=== PATIENT | female | born 2000 | race African-American/Black ===

== ENCOUNTER 2022-07-08 21:59 | Emergency (ER) | payer OTHER, SELFPAY ==
--- OUTSIDE RECORDS SUMMARY | 2022-07-08 22:02 | XMS REPORT | Continuity of Care Document ---
:2000 Author Organization [facility] t Address [facility] [place] [address] Care Team Providers Name Role Phone Pcp, Patient Does Not Have A Primary Care Physician [phone] Roby NATHAN Attending Clinician Unavailable Roby Matos Attending Clinician Doctor Unassigned, [place] Attending Clinician Unavailable JORGE HARMON Attending Clinician Unavailable Jorge Hayden Attending Clinician BARB MARIN Attending Clinician Unavailable KHAI COLE Attending Clinician Unavailable JORGE HARMON Admitting Clinician Unavailable Payers Payer Name Policy Type Policy Number Effective Date Expiration Date S natalee SUÁREZR FROM [id number] 2021 [facility] 00:00:00 HIM BCBS BLUE [id number] 2019 ADVANTAGE O 00:00:00 Problems Condition Condition Condition Status Onset Resolution Last Treating Co mments Source Name Details Category Date Date Treatment Clinician Date No known No known Disease Unive rs active active ity of problems problems [facility] Allergies, Adverse Reactions, Alerts Allergy Allergy Status Severity Reaction(s) Onset Inactive Treating Comm ents Source Name Type Date Date Clinician NO KNOWN Drug Active Univers ALLERGIE Class ity of S [facility] Social History Social Habit Start Date Stop Date Quantity Comments Source Exposure to 2022-06-27 2022-07-07 Not sure [facility] SARS-CoV-2 00:00:00 21:52:00 [facility] (event) [place] Tobacco use and 2017-09-09 2017-09-09 Smokeless tobacco Un iversity of exposure 00:00:00 00:00:00 non-user [facility] Sex Assigned At 2000 2000 Universit y of 00:00:00 00:00:00 [facility] Smoking Status Start Date Stop Date Source Never smoked tobacco [facility] Medications Ordered Filled Start Stop Current Ordering Indication Dosage Frequency Signature Comments Components Source Medication Medication Date Date Medication? Clinician (SIG) Name Name cephALEXin No 500mg 500 mg, Un sherine (KEFLEX) 07-08 Oral, ity of capsule 500 05:00: 04:10 [place] 1 [place] :[place] dose, On [facility] 07/08/22 Branch at 0000, JEANIE
Re ason for Anti-Infec tive: Documented Infection< br>Documen gold Infection Site: Skin / Soft Tissue
Duration of Therapy: 10 days ibuprofen 2021- No 600mg 600 mg, Uni vers (IBU) 07-08 Oral, ity of tablet 600 05:00: 04:10 ONCE, 1 [place] mg 00 :00 dose, On [facility] 07/08/22 Branch at 0000, JEANIE mupirocin 2 Yes [id number] Apply to Univers % ointment 07-07 area(s) 3 ity of 00:00: (three) [place] 00 times Medical daily. Branch ibuprofen Yes [id number] 600mg Take 1 Univers 600 mg 07-07 tablet by ity of tablet 00:00: mouth [place] 00 every 6 Medical (six) Branch hours as needed for Pain (scale 4-6). cephALEXin 2021- Yes [id number] 500mg Take 1 Univers (KEFLEX) 07-07 capsule by ity of 500 mg 00:00: 04:59 mouth in [place] capsule 00 :00 the Medical morning Branch and 1 capsule at noon and 1 capsule in the evening. Do all this for 10 days. ketorolac 2021- No 30mg 30 mg, Unive rs (TORADOL) 3-25 03-26 Slow IV ity of injection 23:15: 00:19 Push, [place] 30 mg 00 :00 ONCE, 1 Medical dose, On Branch 02/21/22 at 1815, JEANIE ondansetron Yes [id number] 4mg Take 1 Univers 4 mg 3-25 tablet by ity of disintegrat 00:00: mouth [place] ing tablet 00 every 8 Medica l (eight) Branch hours as needed for Nausea and Vomiting (N/V). dicyclomine Yes [id number] 20mg Take 1 Univers 20 mg 3-25 tablet by ity of tablet 00:00: mouth 4 [place] 00 (four) Medical times Branch daily as needed for Abdominal pain. ondansetron Yes [id number] 4mg Take 1 Univers 4 mg 3-25 tablet by ity of disintegrat 00:00: mouth [place] ing tablet 00 every 8 Medica l (eight) Branch hours as needed for Nausea and Vomiting (N/V). dicyclomine Yes [id number] 20mg Take 1 Univers 20 mg 3-25 tablet by ity of tablet 00:00: mouth 4 [place] 00 (four) Medical times Branch daily as needed for Abdominal pain. ondansetron Yes [id number] 4mg Take 1 Univers 4 mg 3-25 tablet by ity of disintegrat 00:00: mouth [place] ing tablet 00 every 8 Medica l (eight) Branch hours as needed for Nausea and Vomiting (N/V). dicyclomine Yes [id number] 20mg Take 1 Univers 20 mg 3-25 tablet by ity of tablet 00:00: mouth 4 [place] 00 (four) Medical times Branch daily as needed for Abdominal pain. cephALEXin 2021-0 2021- No [id number] 500mg Take 1 Univers (KEFLEX) 3-25 04-02 capsule by ity of 500 mg 00:00: 04:59 mouth 2 [place] capsule 00 :00 (two) Medical times Branch daily for 7 days. phenazopyri 2019-11 Yes [id number] 200mg Take 1 Univers dine 200 mg 1-27 tablet by ity of tablet 00:00: mouth 3 [place] (three) Medical times Branch daily. phenazopyri 2019- Yes [id number] 200mg Take 1 Univers dine 200 mg 1-27 tablet by ity of tablet 00:00: mouth 3 [place] (three) Medical times Branch daily. phenazopyri 2019- Yes [id number] 200mg Take 1 Univers dine 200 mg 1-27 tablet by ity of tablet 00:00: mouth 3 [place] (three) Medical times Branch daily. azithromyci 2015-0 Yes 250mg Take 1 Tab Univers n 2-01 by mouth ity of (ZITHROMAX) 00:00[place]. [place] 250 mg 00 Medical tablet Branch azithromyci Yes 250mg Take 1 Tab Univers n 2-01 by mouth ity of (ZITHROMAX) 00:00[place]. [place] 250 mg 00 Medical tablet Branch azithromyci Yes 250mg Take 1 Tab Univers n 2-01 by mouth ity of (ZITHROMAX) 00:00: [place]. [place] 250 mg 00 Medical tablet Branch Vital Signs Vital Name Observation Time Observation Value Comments Source Systolic blood 2022-07-08 02:52:00 170 mm[Hg] Univer sity [facility] Diastolic blood 2022-07-08 02:52:00 95 [facility]Hg[facility] 2022-07-08 02:52:00 89 /min [facility] Body temperature 2022-07-08 02:52:00 36.28 Shira [facility] Respiratory rate 2022-07-08 02:52:00 20 /min [facility] Body weight 2022-07-08 02:52:00 122.471 kg [facility] Oxygen saturation in 2022-07-08 02:52:00 99 /min [facility] Arterial blood by [facility] Pulse oximetry Branch Systolic blood 2022-02-22 00:16:00 159 mm[Hg] Univer sity [facility] Diastolic blood 2022-02-22 00:16:00 82 mm[Hg] [facility] Heart rate 2022-02-22 00:16:00 102 /min [facility] Body temperature 2022-02-22 00:16:00 37.56 Shira [facility] Respiratory rate 2022-02-22 00:16:00 20 /min [facility] Oxygen saturation in 2022-02-22 00:16:00 99 /min [facility] blood by [facility] Pulse oximetry Branch Body weight 2022-02-21 21:43:00 130.364 kg [facility] Procedures Procedure Date / Time Performed Performing Clinician Sourc e CONSENT/REFUSAL FOR 2022-07-08 02:33:40 [facility] TREATMENT XR CHEST 1 VW 2022-02-21 22:50:00 Sidra [facility] POCT TEST 2022-02-21 22:38:00 Jorge Harmon [facility] COMP. METABOLIC PANEL 2022-02-21 22:36:[address] [facility] ([id number]) [facility] CBC WITH DIFF 2022-02-21 22:36:00 Sidra [facility] URINALYSIS 2022-02-21 22:36:00 Sidra [facility] RAPID STREP SCREEN FOR 2022-02-21 22:36:00 Sidra [facility] GROUP A [facility] RAPID INFLUENZA A/B 2022-02-21 22:36:00 Jorge Harmon [facility] COVID-19 (ID NOW RAPID 2022-02-21 22:36:00 Sidra [facility] TESTING) Medical Branch CONSENT/REFUSAL FOR 2022-02-21 21:01:28 Doctor Unassigned, No [facility] AND Name Medical [place] TREATMENT Encounters Start End Encounter Admission Attending Care Care Encounter Source Date/Time Date/Time Type Type Clinicians Facility Department ID 2021-09-[address] [facility] [id number] Univers [facility] 2021-09-[address] [facility] [id number] Univers 23:32:08 [facility] 2021-09-[address] [facility] [id number] Univers 07:56:00 ity of [facility] 2021-09-[address] [facility] [id number] Univers 04:41:20 ity of [facility] 2022-07-07 2022-07-07 Emergency X Roby NATHAN [facility] ERT [id number] Univers 22:13:00 23:26:00 ity of [facility] 2022-07-07 2022-07-07 Emergency Roby Nathan [facility] [id number] Univers 22:13:00 23:26:00 Ale HILL [id number] i ty of [facility] 4.2.7.2.686 [facility] [id number] [address] 2022-07-07 2022-07-07 Orders Doctor JASMINE [id number] Univers 00:00:00 00:00:00 Only Unassigned, KEAGAN [id number] ity of [facility] 4.2.7.2.686 Amor [id number] [address] 2022-02-21 2022-02-21 Emergency X SIDRA, [facility] ERT [id number] Univers 16:46:00 19:25:00 JORGE [facility] 2022-02-21 2022-02-21 Emergency HarmonRUST [id number] Univers 16:46:00 19:25:00 Jorge HILL 350.1.13.10 i ty of [facility] 4.2.7.2.686 [facility] [id number] [address] 2022-01-17 2022-01-17 Outpatient R TOMAS, [facility] [id number] Univers 15:30:00 15:30:00 BARB [id number] [facility] 2022-01-07 2022-01-07 Outpatient R TOMAS, [facility] [id number] Univers 09:00:00 09:00:00 BARB [id number] [facility] 2022-01-07 2022-01-07 Outpatient R TOMAS, [facility] [id number] Univers 09:00:00 09:00:00 [facility] 2020-09-07 2020-09-07 Outpatient R KELSEY [facility] [id number] Univers 15:45:00 15:45:00 WONDIFUL ity o f [facility] 2020-09-07 2020-09-07 Outpatient R KELSEY [facility] [id number] Univers 15:45:00 15:45:00 WONDIFUL ity o f [facility] 2020-06-15 2020-06-15 Outpatient R [facility] [id number] Univers 15:40:00 15:40:00 [id number] [facility] 2020-06-15 2020-06-15 Outpatient R [facility] [id number] Univers 15:40:00 15:40:00 [facility] Results Test Description Test Time Test Comments Results Result Comments Source COMP. METABOLIC PANEL ([id number]) 2022-02-21 23:01:18 Test Item Value Reference Range Interpretation Comme nts NA (test code = 5340440486) 140 mmol/L 135-145 K (test code = 9481662610) 4.2 mmol/L 3.5-5.0 CL (test code = 2511979519) 104 mmol/L 98-108 CO2 TOTAL (test code = 25 mmol/L 23-31 5598010946) AGAP (test code = 7200781277) 2-16 BUN (test code = 3788522579) 10 mg/dL 7-23 GLUCOSE (test code = 1457390428) 106 mg/dL 70-110 CREATININE (test code = 0.63 mg/dL 0.50-1.04 9448955321) TOTAL BILI (test code = 0.6 mg/dL 0.1-1.0 2300863266) CALCIUM (test code = 2047475307) 8.8 mg/dL 8.6-10.6 T PROTEIN (test code = 8.0 g/dL 6.3-8.2 5822293864) ALBUMIN (test code = 2877428034) 4.0 g/dL 3.5-5.0 ALK PHOS (test code = 8497611935) 85 U/L 34-122 ALTv (test code = 1742-6) 18 U/L 5-35 AST(SGOT) (test code = 21 U/L 13-40 7570312916) eGFR (test code = 2326861604) mL/min/1.73m2 ALEJANDRO (test code = ALEJANDRO) Association of Glomerular Filtration Rate (GFR) and Staging of Kidney Disease* + +--------- + ----+| GFR (mL/min/1.73 m2) ?| With Kidney Damage ?| ?Without Kidney Damage+ +--- + +| ?>90 ?| ?Stage one ?| ? Normal ?+ +-------- + -----+| ?60-89 ?| ?Stage two ?| ? Decreased GFR ? + +--------- + ----+| ?30-59 ?| ?Stage three ?| ? Stage three ? + +--------- + ----+| ?15-29 ?| ?Stage four ? | ? Stage four ?+ +-------- + -----+| ?<15 (or dialysis) ? ?| ?Stage five ? | ? Stage five ?+ +-------- + -----+ *Each stage assumes the associated GFR level has been in effect for at least three months. ?Stages 1 to 5, with or without kidney disease, indicate chronic kidney disease. Notes: Determination of stages one and two (with eGFR >59mL/min/1.73 m2) requires estimation of kidney damage for at least three months as defined by structural or functional abnormalities of the kidney, manifested by either:Pathological abnormalities or Markers of kidney damage (including abnormalities in the composition of the blood or urine or abnormalities in imaging tests). [facility] WITH [id number] 22:47:55 Test Item Value Reference Range Interpretation Comments WBC (test code = See_Comment [Automated 4173-2) message] The sy stem which generated this result transmitted reference range : 4.30 - 11.10 10*3/?L. The reference range was not used to interpret this result as normal/abnormal . RBC (test code = See_Comment [Automated 926-8) message] The sy stem which generated this result transmitted reference range : 3.93 - 5.25 10*6/?L. The reference range was not used to interpret this result as normal/abnormal . HGB (test code = 11.4 g/dL 11.6-15.0 L 718-7) HCT (test code = 37.0 % 35.7-45.2 4544-3) MCV (test code = 78.7 fL 80.6-95.5 L 787-2) MCH (test code = 24.3 pg 25.9-32.8 L 785-6) MCHC (test code = 30.8 g/dL 31.6-35.1 L 786-4) RDW-SD (test code = 44.9 fL 39.0-49.9 23888-0) RDW-CV (test code = 15.6 % 12.0-15.5 H 788-0) PLT (test code = See_Comment [Automated 777-3) message] The sy stem which generated this result transmitted reference range : 166 - 358 10*3/ ?L. The reference r michele was not used to interpret this result as normal/abnormal . MPV (test code = 10.3 fL 9.5-12.9 18873-9) NRBC/100 WBC (test See_Comment [Automat ed code = 1282587570) message] The system which generated this result transmitted reference range : 0.0 - 10.0 /100 WBCs. The refer ence range was not u sed to interpret th is result as normal/abnormal . NRBC x10^3 (test code <0.01 See_Comment [Auto mated = 8324926286) message] The s ystem which generated this result transmitted reference range : 10*3/?L. The reference range was not used to interpret this result as normal/abnormal . GRAN MAT (NEUT) % 67.4 % (test code = 770-8) IMM GRAN % (test code 0.20 % = 6447298707) LYMPH % (test code = 22.1 % 736-9) MONO % (test code = 7.6 % 5905-5) EOS % (test code = 2.2 % 713-8) BASO % (test code = 0.5 % 706-2) GRAN MAT x10^3(ANC) 6.61 10*3/uL 1.88-7.09 (test code = 4790312948) IMM GRAN x10^3 (test <0.03 0.00-0.06 code = 4719302834) LYMPH x10^3 (test code 2.17 10*3/uL 1.32-3.29 = 731-0) MONO x10^3 (test code 0.75 10*3/uL 0.33-0.92 = 742-7) EOS x10^3 (test code = 0.22 10*3/uL 0.03-0.39 711-2) BASO x10^3 (test code 0.05 10*3/uL 0.01-0.07 = 704-7) Lab Interpretation Abnormal (test code = 11049-9) [id number]00 Test Item Value Reference Range Interpretation Comments POCT PREG (test code = 1605) negative On board controls acceptable with present C Line (test code = 3574) POCT PREG LOT # (test code = 3575) [id number] POCT PREG TEST DATE (test 2023-01-27 code = 3576) Lab Interpretation (test code = Normal 79499-5) [facility]"
[2022-07-08] MEDS ORDERED: SMZ./TMP. 800/160 MG TABLET ONE (22:25)
[2022-07-08] MEDS ORDERED: IBUPROFEN 200 MG TAB PO ONE (22:37)
[2022-07-08] MEDS ORDERED: IBUPROFEN 400 MG TAB ONE (22:37)
--- NOTE | 2022-07-08 22:39 | ER ---
Nurse's Notes [facility] Name: Norman Unger Age: 22 yrs Sex: Female : 2000 Arrival Date: 07/08/2022 Time: 22:03 Bed 18 Private MD: Diagnosis: Cutaneous abscess of buttock Presentation: 07/08 22:21 Chief complaint: Patient states: C/o of left sided rectal pain 08/09, states "I think ll3 its a spider bite, it started getting worse last night", c/o H/A since 8 PM. Coronavirus screen: Vaccine status: Patient reports being unvaccinated. At this time, the client does not indicate any symptoms associated with coronavirus-19. Ebola Screen: No symptoms or risks identified at this time. Initial Sepsis Screen: Does the patient meet any 2 criteria? Temp <36.0*C (96.8*F)) or > 38.3*C (100.9*F). No. Patient's initial sepsis screen is negative. Does the patient have a suspected source of infection? No. Patient's initial sepsis screen is negative. Risk Assessment: Do you want to hurt yourself or someone else? Patient reports no desire to harm self or others. Onset of symptoms was July 07, 2022. 22:21 Method Of Arrival: Ambulatory ll3 22:21 Acuity: KOREY 3 ll3 Triage Assessment: 22:43 Bite description: bite sustained to buttocks by a spider, animal information: sm5 vaccination(s) is unknown. General: Appears uncomfortable. STUDENT RECORDS COORDINATOR: 22:26 LMP 06/30/2022 3 Historical: - Allergies: 22:26 No Known Allergies; ll3 - Immunization history:: Client reports having NOT received the Covid vaccine. - Social history:: Smoking status: Patient reports the use of cigarette tobacco products, denies chronic smoking, but will smoke occasionally. Screenin:42 Abuse screen: Denies threats or abuse. Denies injuries from another. Nutritional sm5 screening: No deficits noted. Tuberculosis screening: No symptoms or risk factors identified. Fall Risk None identified. Assessment: 22:42 General: Appears uncomfortable, Behavior is cooperative. Pain: Complains of pain in sm5 buttocks. Neuro: Level of Consciousness is awake, alert, obeys commands, Oriented to person, place, time, situation. Derm: Skin is intact, Skin is pink, warm \\T\\ dry. Vital Signs: 22:21 BP 124 / 61; Pulse 95; Resp 19; Temp 101.5(O); Pulse Ox 99% on R/A; Weight 117.93 kg ll3 (R); Height 4 ft. 11 in. (149.86 cm) (R); Pain 9/10; 22:21 Body Mass Index 52.51 (117.93 kg, 149.86 cm) ll3 ED Course: 22:03 Patient arrived in ED. ja2 22:03 [facility]ata Yates [facility]-C [facility] kb 22:03 Grey Jones MD is Attending Physician. kb 22:09 Twyla Coley, [place] is Primary Nurse. sm5 22:26 Triage completed. 3 22:26 Arm band placed on Patient placed in an exam room, on a stretcher, on pulse oximetry. ll3 22:33 US Extrmty Nonvasular Limited In Process Unspecified. EDMS 22:43 Patient has correct armband on for positive identification. Bed in low position. Call sm5 light in reach. Side rails up X 1. 22:43 No provider procedures requiring assistance completed. Patient did not have IV access sm5 during this emergency room visit. Administered Medications: 22:31 Drug: Bactrim (trimethoprim-sulfamethoxazole) (160 mg-800 mg (DS) 1 tablet Route: PO; sm5 22:42 Follow up: Response: No adverse reaction sm5 22:31 Drug: Ibuprofen 600 mg Route: PO; sm5 22:42 Follow up: Response: No adverse reaction 5 Medication: 22:43 VIS not applicable for this client. sm5 Outcome: 22:38 Discharge ordered by . kb 22:43 Discharged to home ambulatory, with friend. sm5 22:43 Condition: stable 22:43 Discharge instructions given to patient, friend, Instructed on discharge instructions, follow up and referral plans. medication usage, Demonstrated understanding of instructions, follow-up care, medications, Prescriptions given X 1. 22:44 Patient left the ED. 5 Signatures: Dispatcher [employer] EDMN Lata Yates FNP-C FNP-Ckb Alexander, Jessica ja2 Anastasiia Oliveira RN RN ll3 Vianca, Twyla, RN RN sm5
--- NOTE | 2022-07-08 22:39 | EDPHYS ---
Physician Documentation [facility] Name: Norman Unger Age: 22 yrs Sex: Female : 2000 Arrival Date: 07/08/2022 Time: 22:03 Bed 18 Private MD: ED Physician Grey Jones HPI: 07/08 22:52 This 22 yrs old Black Female presents to ER via Ambulatory with complaints of Insect kb Bite. 22:52 The patient presents with an abscess of the left gluteus anabel. Description: kb erythematous, swollen, warm. Onset: The symptoms/episode began/occurred 2 day(s) ago. Possible cause(s): unknown. Associated signs and symptoms: Pertinent positives: erythema, swelling, Pertinent negatives: discharge, drainage, foreign body sensation, fever, headache, nausea, shortness of breath, vomiting. Modifying factors: the symptoms are alleviated by nothing, the symptoms are aggravated by pressure, squeezing the lesion and expressing the contents. Severity of symptoms: At their worst the symptoms were moderate, in the emergency department the symptoms are unchanged. The patient has not experienced similar symptoms in the past. The patient has been recently seen by a physician: yesterday, with similar presenting complaints. Pt reports insect bite to left buttock that started 2 days ago. Was seen at [facility] and given a prescription for antibiotics, but pt states they were over $100 so she didn't pick them up. Reports redness has spread since going there. . CLIENT SERVICE COORDINATOR: 22:26 LMP 06/30/2022 ll3 Historical: - Allergies: 22:26 No Known Allergies; ll3 - Immunization history:: Client reports having NOT received the Covid vaccine. - Social history:: Smoking status: Patient reports the use of cigarette tobacco products, denies chronic smoking, but will smoke occasionally. ROS: 22:51 Constitutional: Negative for fever, chills, and weight loss. kb 22:51 Skin: Positive for abscess, erythema, swelling, of the left gluteus anabel. 22:51 All other systems are negative. Exam: 22:51 Constitutional: This is a well developed, well nourished patient who is awake, alert, kb and in no acute distress. Head/Face: Normocephalic, atraumatic. ENT: Moist Mucous membranes Cardiovascular: Regular rate and rhythm with a normal S1 and S2. No gallops, murmurs, or rubs. No pulse deficits. Respiratory: Respirations even and unlabored. No increased work of breathing. Talking in full sentences MS/ Extremity: Pulses equal, no cyanosis. Neurovascular intact. Full, normal range of motion. Neuro: Awake and alert, GCS 15, oriented to person, place, time, and situation. Moves all extremities. Normal gait. Psych: Awake, alert, with orientation to person, place and time. Behavior, mood, and affect are within normal limits. 22:51 Skin: abscess, that is moderate sized, of the left gluteus anabel, with surrounding cellulitis, that is mild. Vital Signs: 22:21 BP 124 / 61; Pulse 95; Resp 19; Temp 101.5(O); Pulse Ox 99% on R/A; Weight 117.93 kg ll3 (R); Height 4 ft. 11 in. (149.86 cm) (R); Pain 9/10; 22:21 Body Mass Index 52.51 (117.93 kg, 149.86 cm) ll3 MDM: 22:09 Patient medically screened. kb 22:50 Data reviewed: vital signs, nurses notes. Data interpreted: Pulse oximetry: on room air kb is 99 %. Interpretation: normal. Counseling: I had a detailed discussion with the patient and/or guardian regarding: the historical points, exam findings, and any diagnostic results supporting the discharge/admit diagnosis, radiology results, the need for outpatient follow up, a family practitioner, to return to the emergency department if symptoms worsen or persist or if there are any questions or concerns that arise at home. 07/08 22:12 [facility] kb Administered Medications: 22:31 Drug: Bactrim (trimethoprim-sulfamethoxazole) (160 mg-800 mg (DS) 1 tablet Route: PO; sm5 22:42 Follow up: Response: No adverse reaction sm5 22:31 Drug: Ibuprofen 600 mg Route: PO; sm5 22:42 Follow up: Response: No adverse reaction sm5 Disposition: 23:32 Co-signature as Attending Physician, Grey Jones MD. rn Disposition Summary: 07/08/22 22:38 Discharge Ordered Location: Home kb Condition: Stable kb Diagnosis - Cutaneous abscess of buttock kb Followup: kb - With: Emergency Department - When: As needed - Reason: Worsening of condition Followup: kb - With: Private Physician - When: 2 - 3 days - Reason: Recheck today's complaints, Continuance of care, Re-evaluation by your physician Discharge Instructions: - Discharge Summary Sheet kb - Skin Abscess, [id number] kb Forms: - Medication Reconciliation Form kb - Thank You Letter kb - Antibiotic Education kb - Prescription Opioid Use kb Prescriptions: - Bactrim DS 800-160 mg Oral Tablet - take 1 tablet by ORAL route every 12 hours for 10 days; 20 tablet; Refills: 0, kb Product Selection Permitted Signatures: Dispatcher [employer] EDMS Lata Yates, OPERATIONS STAFF SPECIALIST SECURITY-C OPERATIONS STAFF SPECIALIST SECURITY-Ckb Grey Jones MD MD rn Loubet, Lynsea, RN RN ll3 Twyla Coley, RN RN sm5
[2022-07-09 00:34] VITALS: BP 124/61; TEMP 101.5; O2SAT 99
--- NOTE | 2022-07-09 13:19 | RAD REPORT ---
EXAM DESCRIPTION: US - Extremity Nonvascular Limited - 07/08/2022 11:03 pm CLINICAL HISTORY: Evaluate abscess left buttock. COMPARISON: None. TECHNIQUE: Survey ultrasound imaging of the left buttock was performed including color Doppler evalu ation with traffic workforce representative images obtained. FINDINGS: There is subcutaneous edema in the region of concern in the left buttock. No fluid collect ion identified. No hyperemia on color Doppler imaging. IMPRESSION: No abscess is visualized. Electronically signed by: Bouchra Lees MD 07/08/2022 10:53 PM CDT Due to temporary technical issues with the PACS/Fluency reporting system, reports are being signed by the in house radiologists without review as a courtesy to insure prompt reporting. The interpreting radiologist is fully responsible for the content of the report.
== END 2022-07-08 22:44 | disposition home or self-care (01) ==
LOC: ER 21:59
DX: L02.31 Cutaneous abscess of buttock (principal); F17.210 Nicotine dependence, cigarettes, uncomplicated
CPT/HCPCS: 76882